=== PATIENT | male | born 1975 | race Caucasian/White ===

== ENCOUNTER → 2016-12-11 | Outpatient (CLI) | payer OTHER ==
--- NOTE | 2016-12-11 10:46 | REP ---
CT study of the chest without contrast: History: Follow-up pulmonary nodules. Comparison chest CT study September 18, 2016. Comparison radiographs September 10, 2016. Prior study was reported as showing a 2.5 x 0.6 cm nodular density along the major fissure on the right side and a 0.5 cm nodular density along the minor fissure on the right side. CT findings: There is no evidence of pleural or pericardial effusion. No hilar or mediastinal mass or adenopathy is seen. No adrenal lesion is seen. There is a undigested tablet in the gastric antrum. The visualized upper abdominal structures are otherwise unremarkable. No bony destructive lesion is seen. Lung window settings demonstrate multiple focal areas of mild pleural thickening along the major fissures bilaterally and along the minor fissure on the right. These are entirely unchanged from the comparison CT study bilaterally. No aurora pulmonary parenchymal nodule is appreciated. Impression: There are stable benign appearing areas of mild multifocal pleural thickening in the major fissures bilaterally and in the minor fissure on the right, unchanged from the comparison study September 18, 2016. Signed by Emil Loco MD 12/11/2016 03:03 P
== END ==
LOC: M RAD 08:51
PROVIDERS: ATTEND Internal Medicine Pulmonary Disease
DX: R91.8 Other nonspecific abnormal finding of lung field (principal)

== ENCOUNTER → 2017-06-13 | Outpatient (CLI) | payer OTHER ==
--- NOTE | 2017-06-13 09:48 | REP ---
CT of the chest without IV contrast for follow up of lung nodules: Comparisons are 12/11/2016 09/18/2016. The patient has the following lung nodules, all stable and unchanged from both prior studies: Right lung is 47, 5 mm. Right lung, image 48, 2.5 by 0.6 cm, multinodular. Right lung, image 51, 6 mm. The left lung, image 49, 5 mm. Left lung, is 55, 3 mm. There are no infiltrates or effusions. There is no mediastinal or axillary adenopathy. The study is insensitive for hilar adenopathy in the absence of IV contrast. The thoracic aorta is unremarkable. Cardiac size is normal. The visualized upper abdominal contents are unremarkable. There is no adrenal mass. Impression: Multiple bilateral lung nodules, all stable from the comparison studies. Signed by Diego Elizabeth MD 06/13/2017 09:40 A
== END ==
LOC: M RAD 08:43
PROVIDERS: ATTEND Internal Medicine Pulmonary Disease
DX: R91.8 Other nonspecific abnormal finding of lung field (principal)

== ENCOUNTER → 2017-11-25 | Outpatient (REF) | payer OTHER | LOC: M LAB REF 19:47 | DX: J11.1 Influenza due to unidentified influenza virus with other respiratory manifestations (principal) ==

== ENCOUNTER → 2017-12-17 | Outpatient (CLI) | payer OTHER | LOC: M RAD 11:14 | DX: R91.8 Other nonspecific abnormal finding of lung field (principal) | CPT/HCPCS: 71250 ==

== ENCOUNTER → 2018-03-10 | Outpatient (REF) | payer OTHER ==
[2018-03-10 10:48] LABS: BASO % 0.3 % (0.0-1.0); EOS # 0.1 10^3/uL (0.0-0.50); HEMATOCRIT 46.6 % (42.0-52.0); HEMOGLOBIN 16.2 g/dl (13.5-17.5); IMMATURE GRANULOCYTE % 0.3 % (0-3.0); LYMPH # 1.6 10^3/uL (1.5-4.5); LYMPH % 23.8 % (24.0-44.0); MEAN CORPUSCULAR HEMOGLOBIN 30.5 pg (27.0-33.0); MEAN CORPUSCULAR HGB CONC 34.8 g/dl (32.0-36.5); MEAN CORPUSCULAR VOLUME 87.6 fl (80.0-96.0); MONO # 0.7 10^3/uL (0.0-0.8); MONO % 9.5 % (0.0-5.0); NEUTROPHILS # 4.5 10^3/uL (1.8-7.7); NEUTROPHILS % 65.1 % (36.0-66.0); PLATELET COUNT, AUTOMATED 271 10^3/uL (150-450); RED BLOOD COUNT 5.32 10^6/uL (4.30-6.10); RED CELL DISTRIBUTION WIDTH 12.4 % (11.5-14.5); WHITE BLOOD COUNT 6.8 10^3/uL (4.0-10.0)
[2018-03-10 11:31] LABS: ALBUMIN 4.3 GM/DL (3.2-5.2); ALBUMIN/GLOBULIN RATIO 1.13 (1.00-1.93); ALKALINE PHOSPHATASE 81 U/L (45-117); ALT/SGPT 40 U/L (12-78); ANION GAP 7 MEQ/L (8-16); AST/SGOT 24 U/L (7-37); BILIRUBIN,TOTAL 0.6 MG/DL (0.2-1.0); BLOOD UREA NITROGEN 15 MG/DL (7-18); CALCIUM LEVEL 9.2 MG/DL (8.5-10.1); CARBON DIOXIDE LEVEL 25 MEQ/L (21-32); CHLORIDE LEVEL 108 MEQ/L (98-107); CHOLESTEROL LEVEL 261 MG/DL (<200); CHOLESTEROL RISK RATIO 7.676 (<5); CREATININE FOR GFR 1.13 MG/DL (0.70-1.30); GLOMERULAR FILTRATION RATE > 60.0 (>60); GLUCOSE, FASTING 112 MG/DL (70-100); HDL CHOLESTEROL 34 MG/DL (>40); LDL CHOLESTEROL 186.4 MG/DL (<100); NON-HDL-C 227 MG/DL; POTASSIUM SERUM 4.2 MEQ/L (3.5-5.1); SODIUM LEVEL 140 MEQ/L (136-145); THYROID STIMULATING HORMONE 0.992 uIU/ML (0.358-3.740); TOTAL PROTEIN 8.1 GM/DL (6.4-8.2); TRIGLYCERIDES LEVEL 203 MG/DL (<150)
[2018-03-10 11:38] LABS: TOTAL 25(OH) VITAMIN D 18.9 NG/ML (30.0-100.0); VITAMIN B12 LEVEL 630 PG/ML
[2018-03-10 11:39] LABS: FOLATE 12.4 NG/ML
[2018-03-12 00:08] LABS: TESTOSTERONE FREE (DIRECT) 12.4 pg/mL (6.8-21.5)
== END ==
LOC: M LABDRAW1 10:01
DX: R03.0 Elevated blood-pressure reading, without diagnosis of hypertension (principal); R53.83 Other fatigue
CPT/HCPCS: 82746

== ENCOUNTER 2018-06-02 12:15 | Emergency (ER) | payer OTHER ==
[2018-06-02] MEDS: predniSONE 20 MG TAB PO (13:25)
[2018-06-02] MEDS: tiZANidine 4 MG TAB PO (13:25)
[2018-06-02] MEDS: MORPHINE 10 MG/ML 1ML VIAL (J2270) IM (13:26)
== END 2018-06-02 14:47 | disposition home or self-care (01) ==
LOC: M ED 12:15
DX: M54.6 Pain in thoracic spine (principal); G89.29 Other chronic pain; M62.830 Muscle spasm of back; Z88.0 Allergy status to penicillin; Z79.899 Other long term (current) drug therapy
CPT/HCPCS: J2270

== ENCOUNTER → 2018-09-16 | Outpatient (REF) | payer OTHER ==
[2018-09-16 13:17] LABS: ALBUMIN 4.2 GM/DL (3.2-5.2); ALBUMIN/GLOBULIN RATIO 1.11 (1.00-1.93); ALKALINE PHOSPHATASE 93 U/L (45-117); ALT/SGPT 93 U/L (12-78); ANION GAP 8 MEQ/L (8-16); AST/SGOT 37 U/L (7-37); BILIRUBIN,TOTAL 0.5 MG/DL (0.2-1.0); BLOOD UREA NITROGEN 15 MG/DL (7-18); CALCIUM LEVEL 9.3 MG/DL (8.5-10.1); CARBON DIOXIDE LEVEL 26 MEQ/L (21-32); CHLORIDE LEVEL 105 MEQ/L (98-107); CHOLESTEROL LEVEL 243 MG/DL (<200); CHOLESTEROL RISK RATIO 7.593 (<5); CREATININE FOR GFR 1.21 MG/DL (0.70-1.30); GLOMERULAR FILTRATION RATE > 60.0 (>60); GLUCOSE, FASTING 108 MG/DL (70-100); HDL CHOLESTEROL 32 MG/DL (>40); LDL CHOLESTEROL 162 MG/DL (<100); NON-HDL-C 211 MG/DL; POTASSIUM SERUM 4.3 MEQ/L (3.5-5.1); SODIUM LEVEL 139 MEQ/L (136-145); TRIGLYCERIDES LEVEL 245 MG/DL (<150)
[2018-09-16 13:24] LABS: TOTAL 25(OH) VITAMIN D 49.7 NG/ML (30.0-100.0)
[2018-09-16 13:35] LABS: ESTIMATED AVERAGE GLUCOSE 123 MG/DL (60-110); HEMOGLOBIN A1c 5.9 %
[2018-09-18 00:57] LABS: TESTOSTERONE FREE (DIRECT) 11.6 pg/mL (6.8-21.5)
== END ==
LOC: M LABDRAW1 12:33
DX: E78.2 Mixed hyperlipidemia (principal); R73.01 Impaired fasting glucose; E55.9 Vitamin D deficiency, unspecified; E29.1 Testicular hypofunction

== ENCOUNTER → 2019-01-01 | Outpatient (CLI) | payer OTHER ==
[~2019-01-01] MED LIST: ATOR1TAB21; CYCL10TA; GABA-843; MELO7.5T7; PERC5TAB12 PO; PERCOCET PO; PRED10TA2 PO; TIZA4CAP6 PO
--- NOTE | 2019-01-01 21:07 | REP ---
Clinical: Follow up lung nodules. Technique: Axial noncontrast images from the thoracic inlet to the upper abdomen with coronal and sagittal re-formations. Comparison: 12/17/2017, 09/18/2016. Findings: The few nodules inseparable from the right major fissure (axial images 52-53) are essentially stable in overall size but appear more solid. Largest component measures approximately 15 x 8 mm. The remainder of the few scattered nodules remains stable compared 01/21/2016. No new acute consolidation, nodule or mass lesion identified. No pleural effusion. Minimal left basilar atelectasis now identified. No obvious adenopathy. The mediastinum demonstrates normal thoracic aorta and heart/pericardium. Surrounding musculoskeletal structures are intact. Thyroid gland is grossly normal in appearance. Limited upper abdomen demonstrates normal bilateral adrenal glands. Impression: 1. The small nodular densities along the right major fissure are similar in size but appears slightly more solid than prior examination. Findings may represent progressive scarring. However, follow-up examination at 6-9 months may be warranted to evaluate for stability. 2. Remainder of the nodules are unchanged through 2016. 3. No new acute mediastinal or pleuroparenchymal process appreciated. Electronically Signed by Shaan Callaway MD 01/01/2019 08:59 P
== END ==
LOC: M RAD 17:48
PROVIDERS: ATTEND Internal Medicine Pulmonary Disease
DX: R91.8 Other nonspecific abnormal finding of lung field (principal)

== ENCOUNTER → 2019-02-19 | Outpatient (REF) | payer OTHER ==
[2019-02-19 14:17] LABS: ALBUMIN 4.2 GM/DL (3.2-5.2); ALT/SGPT 56 U/L (12-78); BILIRUBIN,TOTAL 0.7 MG/DL (0.2-1.0); BLOOD UREA NITROGEN 19 MG/DL (7-18); CALCIUM LEVEL 9.1 MG/DL (8.5-10.1); CARBON DIOXIDE LEVEL 23 MEQ/L (21-32); CHLORIDE LEVEL 109 MEQ/L (98-107); CHOLESTEROL LEVEL 180 MG/DL (<200); CHOLESTEROL RISK RATIO 5.806 (<5); CREATININE FOR GFR 1.23 MG/DL (0.70-1.30); GLOMERULAR FILTRATION RATE > 60.0 (>60); GLUCOSE, FASTING 104 MG/DL (70-100); HDL CHOLESTEROL 31 MG/DL (>40); LDL CHOLESTEROL 111 MG/DL (<100); NON-HDL-C 149 MG/DL; POTASSIUM SERUM 4.2 MEQ/L (3.5-5.1); SODIUM LEVEL 140 MEQ/L (136-145); TOTAL PROTEIN 7.4 GM/DL (6.4-8.2); TRIGLYCERIDES LEVEL 191 MG/DL (<150)
== END ==
LOC: M LABDRAW1 12:06
PROVIDERS: ATTEND Physician Assistant
DX: E78.2 Mixed hyperlipidemia (principal)

== ENCOUNTER → 2019-06-30 | Outpatient (CLI) | payer OTHER ==
--- NOTE | 2019-07-01 08:40 | REP ---
Clinical: Follow up abnormal findings. Technique: Axial noncontrast images from the thoracic inlet to the upper abdomen with coronal and sagittal re-formations. Comparison: 01/01/2019, 06/13/2017, 09/18/2016. Findings: Small nodular densities (right greater than left) remain essentially stable through 09/18/2016. No new or acute consolidation, significant nodule or mass lesion identified. No pleural effusion. No pneumothorax. Minimal scattered scarring remains stable. Tracheobronchial tree is patent. No obvious adenopathy. Mediastinum demonstrates normal thoracic aorta, pulmonary vasculature, and heart/pericardium. Surrounding musculoskeletal structures are intact and normal. Limited upper abdomen demonstrates normal bilateral adrenal glands. Impression: Few scattered nodular densities remain essentially stable compared through 2015. No new significant mediastinal or pleuroparenchymal process appreciated. Electronically Signed by Shaan Callaway MD 07/01/2019 08:32 A
== END ==
LOC: M RAD 17:15
PROVIDERS: ATTEND Internal Medicine Pulmonary Disease
DX: R91.8 Other nonspecific abnormal finding of lung field (principal)

== ENCOUNTER → 2019-10-07 | Outpatient (REF) | payer OTHER ==
[2019-10-07 12:32] LABS: BASO % 0.7 % (0.0-1.0); EOS # 0.1 10^3/uL (0.0-0.5); EOS % 1.2 % (0.0-3.0); HEMATOCRIT 45.8 % (42.0-52.0); HEMOGLOBIN 15.3 g/dl (13.5-17.5); LYMPH # 1.8 10^3/uL (1.5-5.0); LYMPH % 30.9 % (24.0-44.0); MEAN CORPUSCULAR HGB CONC 33.4 g/dl (32.0-36.5); MEAN CORPUSCULAR VOLUME 89.8 fl (80.0-96.0); MONO # 0.6 10^3/uL (0.0-0.8); NEUTROPHILS # 3.3 10^3/uL (1.5-8.5); PLATELET COUNT, AUTOMATED 229 10^3/uL (150-450); WHITE BLOOD COUNT 5.8 10^3/uL (4.0-10.0)
[2019-10-07 12:33] LABS: ALBUMIN 4.1 GM/DL (3.2-5.2); ALT/SGPT 40 U/L (12-78); BILIRUBIN,TOTAL 0.6 MG/DL (0.2-1.0); BLOOD UREA NITROGEN 16 MG/DL (7-18); CALCIUM LEVEL 8.9 MG/DL (8.5-10.1); CARBON DIOXIDE LEVEL 25 MEQ/L (21-32); CHLORIDE LEVEL 110 MEQ/L (98-107); CHOLESTEROL LEVEL 171 MG/DL (<200); CHOLESTEROL RISK RATIO 5.343 (<5); CREATININE FOR GFR 1.19 MG/DL (0.70-1.30); GLOMERULAR FILTRATION RATE > 60.0 (>60); GLUCOSE, FASTING 106 MG/DL (70-100); HDL CHOLESTEROL 32 MG/DL (>40); LDL CHOLESTEROL 99 MG/DL (<100); NON-HDL-C 139 MG/DL; POTASSIUM SERUM 4.3 MEQ/L (3.5-5.1); SODIUM LEVEL 143 MEQ/L (136-145); TOTAL PROTEIN 7.2 GM/DL (6.4-8.2); TRIGLYCERIDES LEVEL 200 MG/DL (<150)
[2019-10-07 12:48] LABS: HEMOGLOBIN A1c 6.1 %
== END ==
LOC: M LABDRAW1 11:57
PROVIDERS: ATTEND Physician Assistant
DX: E78.2 Mixed hyperlipidemia (principal); R73.01 Impaired fasting glucose; G43.909 Migraine, unspecified, not intractable, without status migrainosus

== ENCOUNTER → 2020-04-26 | Outpatient (CLI) | payer OTHER ==
[~2020-04-26] MED LIST changes: +CYCL-707; -CYCL10TA
[2020-04-26 14:29] LABS: ALBUMIN 4.1 GM/DL (3.2-5.2); ALT/SGPT 47 U/L (12-78); BILIRUBIN,TOTAL 0.6 MG/DL (0.2-1.0); BLOOD UREA NITROGEN 17 MG/DL (7-18); CALCIUM LEVEL 9.3 MG/DL (8.5-10.1); CARBON DIOXIDE LEVEL 27 MEQ/L (21-32); CHLORIDE LEVEL 107 MEQ/L (98-107); CHOLESTEROL LEVEL 178 MG/DL (<200); CHOLESTEROL RISK RATIO 6.357 (<5); CREATININE FOR GFR 1.26 MG/DL (0.70-1.30); GLOMERULAR FILTRATION RATE > 60.0 (>60); GLUCOSE, FASTING 106 MG/DL (70-100); HDL CHOLESTEROL 28 MG/DL (>40); LDL CHOLESTEROL 92 MG/DL (<100); NON-HDL-C 150 MG/DL; POTASSIUM SERUM 4.8 MEQ/L (3.5-5.1); SODIUM LEVEL 141 MEQ/L (136-145); TOTAL PROTEIN 7.5 GM/DL (6.4-8.2); TRIGLYCERIDES LEVEL 288 MG/DL (<150)
[2020-04-26 14:39] LABS: HEMOGLOBIN A1c 6.3 %
[2020-04-26 15:05] LABS: BASO # 0.1 10^3/uL (0.0-0.2); BASO % 0.7 % (0.0-1.0); EOS # 0.2 10^3/uL (0.0-0.5); EOS % 2.4 % (0.0-3.0); HEMATOCRIT 47.9 % (42.0-52.0); HEMOGLOBIN 15.9 g/dl (13.5-17.5); LYMPH % 26.5 % (24.0-44.0); MEAN CORPUSCULAR HGB CONC 33.2 g/dl (32.0-36.5); MEAN CORPUSCULAR VOLUME 90.4 fl (80.0-96.0); MONO # 0.7 10^3/uL (0.0-0.8); MONO % 9.4 % (0.0-5.0); NEUTROPHILS # 4.6 10^3/uL (1.5-8.5); NEUTROPHILS % 60.7 % (36.0-66.0); PLATELET COUNT, AUTOMATED 174 10^3/uL (150-450); WHITE BLOOD COUNT 7.6 10^3/uL (4.0-10.0)
== END ==
LOC: M PLALAB 08:01
PROVIDERS: ATTEND Physician Assistant
DX: R73.01 Impaired fasting glucose (principal); E78.2 Mixed hyperlipidemia; G43.909 Migraine, unspecified, not intractable, without status migrainosus

== ENCOUNTER → 2020-10-25 | Outpatient (CLI) | payer OTHER ==
[2020-10-25 14:14] LABS: ALBUMIN 4.1 GM/DL (3.2-5.2); ALT/SGPT 46 U/L (12-78); BILIRUBIN,TOTAL 0.5 MG/DL (0.2-1.0); BLOOD UREA NITROGEN 20 MG/DL (7-18); CALCIUM LEVEL 9.2 MG/DL (8.5-10.1); CARBON DIOXIDE LEVEL 28 MEQ/L (21-32); CHLORIDE LEVEL 106 MEQ/L (98-107); CHOLESTEROL LEVEL 205 MG/DL (<200); CHOLESTEROL RISK RATIO 7.884 (<5); GLOMERULAR FILTRATION RATE > 60.0 (>60); GLUCOSE, FASTING 145 MG/DL (70-100); HDL CHOLESTEROL 26 MG/DL (>40); NON-HDL-C 179 MG/DL; POTASSIUM SERUM 4.4 MEQ/L (3.5-5.1); SODIUM LEVEL 140 MEQ/L (136-145); TRIGLYCERIDES LEVEL 526 MG/DL (<150)
[2020-10-25 14:26] LABS: HEMOGLOBIN A1c 5.8 %
== END ==
LOC: M PLALAB 09:40
PROVIDERS: ATTEND Nurse Practitioner Family
DX: R73.01 Impaired fasting glucose (principal); E78.2 Mixed hyperlipidemia

== ENCOUNTER → 2020-11-22 | Outpatient (CLI) | payer OTHER ==
[~2020-11-22] MED LIST changes: +GABA-282; -GABA-843
== END ==
LOC: M LABSMTC 11:57
PROVIDERS: ATTEND Pediatrics
DX: Z20.822 Contact with and (suspected) exposure to COVID-19 (principal)

== ENCOUNTER → 2021-04-27 | Outpatient (REF) | payer OTHER ==
[2021-04-27 17:43] LABS: ALBUMIN 4.3 GM/DL (3.2-5.2); ALT/SGPT 43 U/L (12-78); BILIRUBIN,TOTAL 0.5 MG/DL (0.2-1.0); BLOOD UREA NITROGEN 20 MG/DL (7-18); CALCIUM LEVEL 9.2 MG/DL (8.5-10.1); CARBON DIOXIDE LEVEL 26 MEQ/L (21-32); CHLORIDE LEVEL 108 MEQ/L (98-107); CHOLESTEROL LEVEL 180 MG/DL (<200); CREATININE FOR GFR 1.14 MG/DL (0.70-1.30); GLOMERULAR FILTRATION RATE > 60.0 (>60); GLUCOSE, FASTING 110 MG/DL (70-100); HDL CHOLESTEROL 25 MG/DL (>40); NON-HDL-C 155 MG/DL; SODIUM LEVEL 140 MEQ/L (136-145); TOTAL PROTEIN 7.6 GM/DL (6.4-8.2); TRIGLYCERIDES LEVEL 480 MG/DL (<150)
[2021-04-27 18:33] LABS: HEMOGLOBIN A1c 5.9 %
== END ==
LOC: M PLALAB 16:40
PROVIDERS: ATTEND Nurse Practitioner Family
DX: R73.03 Prediabetes (principal)

== ENCOUNTER → 2021-05-08 | Outpatient (CLI) | payer OTHER ==
--- NOTE | 2021-05-08 14:22 | REP ---
INDICATION: LATERAL EPICONDYLITIS COMPARISON: None. TECHNIQUE: AP, lateral, bilateral oblique views of the left elbow. FINDINGS: No acute fracture or dislocation is appreciated. Joint spaces and surrounding soft tissues appear normal. Lateral view demonstrates normal positioning to the anterior and posterior fat pads without evidence for effusion/hemarthrosis. No subcutaneous emphysema or foreign body identified. IMPRESSION: Normal elbow radiographs. <Electronically signed by Shaan Callaway > 05/08/21 [id number]
== END ==
LOC: M SOG 14:01
PROVIDERS: ATTEND Orthopaedic Surgery Sports Medicine
DX: M77.12 Lateral epicondylitis, left elbow (principal)

== ENCOUNTER → 2021-10-30 | Outpatient (CLI) | payer OTHER ==
[2021-10-30 17:49] LABS: HEMOGLOBIN A1c 5.7 %
[2021-10-30 17:55] LABS: CHOLESTEROL LEVEL 251 MG/DL (<200); CHOLESTEROL RISK RATIO 8.655 (<5); HDL CHOLESTEROL 29 MG/DL (>40); NON-HDL-C 222 MG/DL; TRIGLYCERIDES LEVEL 420 MG/DL (<150)
== END ==
LOC: M PLALAB 15:03
PROVIDERS: ATTEND Nurse Practitioner Family
DX: E78.2 Mixed hyperlipidemia (principal); R73.03 Prediabetes

== ENCOUNTER → 2022-03-26 | Outpatient (CLI) | payer OTHER ==
[2022-03-26 10:50] LABS: HEMOGLOBIN A1c 5.9 %
[2022-03-26 10:59] LABS: ALBUMIN 3.9 GM/DL (3.2-5.2); BILIRUBIN,TOTAL 0.5 MG/DL (0.2-1.0); CALCIUM LEVEL 9.5 MG/DL (8.5-10.1); CHOLESTEROL RISK RATIO 7.391 (<5); CREATININE FOR GFR 1.52 MG/DL (0.70-1.30); GLOMERULAR FILTRATION RATE 52.8 (>60); TOTAL PROTEIN 7.1 GM/DL (6.4-8.2)
== END ==
LOC: M PLALAB 07:30
PROVIDERS: ATTEND Family Medicine
DX: E78.2 Mixed hyperlipidemia (principal)

== ENCOUNTER → 2023-03-14 | Outpatient (CLI) | payer OTHER ==
[2023-03-14 11:07] LABS: BASO % 0.4 % (0.0-1.0); EOS # 0.2 10^3/uL (0.0-0.5); EOS % 2.3 % (0.0-3.0); HEMATOCRIT 43.5 % (42.0-52.0); HEMOGLOBIN 14.8 g/dl (13.5-17.5); LYMPH # 2.5 10^3/uL (1.5-5.0); LYMPH % 35.1 % (24.0-44.0); MEAN CORPUSCULAR HEMOGLOBIN 29.4 pg (27.0-33.0); MEAN CORPUSCULAR VOLUME 86.5 fl (80.0-96.0); MONO # 0.7 10^3/uL (0.0-0.8); MONO % 9.8 % (2.0-8.0); NEUTROPHILS # 3.7 10^3/uL (1.5-8.5); NEUTROPHILS % 52.3 % (36.0-66.0); PLATELET COUNT, AUTOMATED 272 10^3/uL (150-450); RED BLOOD COUNT 5.03 10^6/uL (4.30-6.10)
[2023-03-14 11:39] LABS: ALBUMIN 4.4 G/DL (3.2-5.2); BILIRUBIN,TOTAL 0.7 MG/DL (0.3-1.2); CALCIUM LEVEL 8.8 MG/DL (8.5-10.1); CHOLESTEROL RISK RATIO 6.7 (<5); CREATININE FOR GFR 1.37 MG/DL (0.70-1.30); GLOMERULAR FILTRATION RATE 59.3 (>60); HDL CHOLESTEROL 26.1 MG/DL (>40); LDL CHOLESTEROL 117.5 MG/DL (<100); NON-HDL-C 148.9 MG/DL; POTASSIUM SERUM 4.2 MMOL/L (3.5-5.1); TOTAL PROTEIN 7.2 G/DL (5.7-8.2)
== END ==
LOC: M PLALAB 07:34
PROVIDERS: ATTEND Nurse Practitioner Family
DX: Z00.00 Encounter for general adult medical examination without abnormal findings (principal)

== ENCOUNTER → 2024-03-23 | Outpatient (CLI) | payer OTHER ==
[~2024-03-23] MED LIST changes: +TIZA4CAP3 PO; -TIZA4CAP6 PO
== END ==
LOC: M PLALAB 12:44
PROVIDERS: ATTEND Nurse Practitioner Family
DX: R63.5 Abnormal weight gain (principal); R45.4 Irritability and anger; R73.03 Prediabetes

== ENCOUNTER 2024-06-11 08:13 | Day surgery (SDC) | payer OTHER ==
[~2024-06-11] VITALS: Ht 172.7 cm; Wt 96.6 kg
[~2024-06-11 08:13] MED LIST changes: +ATOR40TA75 PO; +FENO145T7 PO; +TIZA10TA PO; +ZOLM5TAB20 PO
[2024-06-11] MEDS: NS 1,000 ML IV ONE (09:31)
[2024-06-11 09:32] VITALS: TEMP 97.5
[2024-06-11] MEDS ORDERED: LIDOCAINE 2% 100MG/5ML SDV (FOR ANES.) As Ordered ONE (10:13)
[2024-06-11] MEDS ORDERED: propofoL 200 MG/20 ML VIAL As Ordered ONE (10:13)
[2024-06-11 10:39] VITALS: BP 128/81; O2SAT 96
== END 2024-06-11 10:49 | disposition home or self-care (01) ==
LOC: M OPP 08:13
PROVIDERS: ATTEND Surgery
DX: Z12.11 Encounter for screening for malignant neoplasm of colon (principal); K63.5 Polyp of colon; K64.1 Second degree hemorrhoids; K57.30 Diverticulosis of large intestine without perforation or abscess without bleeding; Z87.891 Personal history of nicotine dependence; Z79.02 Long term (current) use of antithrombotics/antiplatelets; Z79.899 Other long term (current) drug therapy; Z88.0 Allergy status to penicillin

== ENCOUNTER → 2024-09-10 | Outpatient (CLI) | payer OTHER ==
[~2024-09-10] MED LIST changes: +GABA-1172; -GABA-282
[2024-09-10 14:01] LABS: ALKALINE PHOSPHATASE 79 U/L (40-129); ALT/SGPT 27 U/L (7.0-40); AST/SGOT 15 U/L (<34); BILIRUBIN,TOTAL 0.6 MG/DL (0.3-1.2); BLOOD UREA NITROGEN 13 MG/DL (9-23); CARBON DIOXIDE LEVEL 27 MMOL/L (20-31); CHLORIDE LEVEL 108 MMOL/L (98-107); CHOLESTEROL LEVEL 209 MG/DL (<200); CHOLESTEROL RISK RATIO 6.43 (<5); CREATININE FOR GFR 1.06 MG/DL (0.70-1.30); GLOMERULAR FILTRATION RATE > 60.0 (>60); GLUCOSE, FASTING 98 MG/DL (60-100); HDL CHOLESTEROL 32.5 MG/DL (>40); LDL CHOLESTEROL 127.5 MG/DL (<100); NON-HDL-C 176.5 MG/DL; POTASSIUM SERUM 4.4 MMOL/L (3.5-5.1); SODIUM LEVEL 142 MMOL/L (136-145); TOTAL PROTEIN 7.4 G/DL (5.7-8.2); TRIGLYCERIDES LEVEL 245 MG/DL (<150)
[2024-09-10 14:06] LABS: BASO # 0.1 10^3/uL (0.0-0.2); BASO % 0.7 % (0.0-1.0); EOS # 0.1 10^3/uL (0.0-0.5); EOS % 1.5 % (0.0-3.0); HEMATOCRIT 51.8 % (42.0-52.0); HEMOGLOBIN 17.4 g/dl (13.5-17.5); LYMPH # 2.2 10^3/uL (1.5-5.0); LYMPH % 29.5 % (24.0-44.0); MEAN CORPUSCULAR HEMOGLOBIN 29.8 pg (27.0-33.0); MEAN CORPUSCULAR HGB CONC 33.6 g/dl (32.0-36.5); MEAN CORPUSCULAR VOLUME 88.7 fl (80.0-96.0); MONO # 0.8 10^3/uL (0.0-0.8); NEUTROPHILS # 4.2 10^3/uL (1.5-8.5); PLATELET COUNT, AUTOMATED 246 10^3/uL (150-450); RED BLOOD COUNT 5.84 10^6/uL (4.30-6.10); WHITE BLOOD COUNT 7.3 10^3/uL (4.0-10.0)
[2024-09-10 14:13] LABS: HEMOGLOBIN A1c 5.7 % (4.0-6.0)
== END ==
LOC: M PLALAB 09:20
PROVIDERS: ATTEND Registered Nurse
DX: E78.2 Mixed hyperlipidemia (principal); R73.03 Prediabetes

== ENCOUNTER → 2024-09-10 | Outpatient (CLI) | payer OTHER ==
[2024-09-10 14:03] LABS: ESTRADIOL 61.7 PG/ML (<39.8); FOLLICLE STIMULATING HORMONE < 0.3 mIU/ML (1.4-18.1); LUTEINIZING HORMONE < 0.1 mIU/ML (1.5-9.3)
[2024-09-10 14:04] LABS: TESTOSTERONE 1387 NG/DL (241-827)
[2024-09-10 14:06] LABS: HEMATOCRIT 51.7 % (42.0-52.0); HEMOGLOBIN 17.5 g/dl (13.5-17.5); MEAN CORPUSCULAR HEMOGLOBIN 30.1 pg (27.0-33.0); MEAN CORPUSCULAR HGB CONC 33.8 g/dl (32.0-36.5); PLATELET COUNT, AUTOMATED 241 10^3/uL (150-450); RED BLOOD COUNT 5.81 10^6/uL (4.30-6.10); WHITE BLOOD COUNT 7.2 10^3/uL (4.0-10.0)
== END ==
LOC: M PLALAB 09:22
PROVIDERS: ATTEND Physician Assistant
DX: E29.1 Testicular hypofunction (principal)
CPT/HCPCS: 36415; 80053; 80061; 82670; 83001; 83002; 83036; 84403; 85025; 85027; G0103

== ENCOUNTER → 2025-03-11 | Outpatient (CLI) | payer OTHER ==
[2025-03-11 11:28] LABS: CHOLESTEROL RISK RATIO 5.78 (<5)
== END ==
LOC: M PLALAB 07:48
PROVIDERS: ATTEND Registered Nurse
DX: E78.2 Mixed hyperlipidemia (principal)

== ENCOUNTER → 2025-03-11 | Outpatient (CLI) | payer OTHER ==
[2025-03-11 11:23] LABS: HEMATOCRIT 51.3 % (42.0-52.0); HEMOGLOBIN 17.4 g/dl (13.5-17.5); MEAN CORPUSCULAR HEMOGLOBIN 30.4 pg (27.0-33.0); MEAN CORPUSCULAR HGB CONC 33.9 g/dl (32.0-36.5); MEAN CORPUSCULAR VOLUME 89.5 fl (80.0-96.0); PLATELET COUNT, AUTOMATED 250 10^3/uL (150-450); RED BLOOD COUNT 5.73 10^6/uL (4.30-6.10); WHITE BLOOD COUNT 7.1 10^3/uL (4.0-10.0)
[2025-03-11 11:57] LABS: ESTRADIOL 57.6 PG/ML (<39.8)
== END ==
LOC: M PLALAB 07:46
PROVIDERS: ATTEND Physician Assistant
DX: E29.1 Testicular hypofunction (principal); E78.2 Mixed hyperlipidemia

== ENCOUNTER → 2025-09-09 | Outpatient (CLI) | payer OTHER ==
[2025-09-09 14:39] LABS: PLATELET COUNT, AUTOMATED 246 10^3/uL (150-450)
[2025-09-09 14:44] LABS: PSA SCREENING 0.9 NG/ML (< 4.00)
[2025-09-09 14:49] LABS: TESTOSTERONE 178.0 NG/DL (241-827)
== END ==
LOC: M PLALAB 09:54
PROVIDERS: ATTEND Physician Assistant
DX: N52.8 Other male erectile dysfunction (principal)
CPT/HCPCS: 36415; 84403; 85027; G0103